=== PATIENT | female | born 1965 | race African-American/Black ===

== ENCOUNTER 2018-10-15 01:15 | Emergency (ER) | payer OTHER ==
[2018-10-15 05:32] LABS: URINE BLOOD (Dip) POC Trace-intact (NEGATIVE); URINE GLUCOSE (Dip) POC Negative (NEGATIVE); URINE KETONES (Dip) POC Negative (NEGATIVE); URINE LEUKOCYTE EST (Dip) POC Negative (NEGATIVE); URINE NITRITE (Dip) POC Negative (NEGATIVE); URINE TOTAL PROTEIN POC 1+ (NEGATIVE)
[2018-10-15] MEDS: morphine 4 MG/ML VIAL IM (05:43)
[2018-10-15] MEDS: KETOROLAC 30 MG INJ IM (05:44)
== END 2018-10-15 06:33 | disposition home or self-care (01) ==
LOC: FTE 01:15
DX: G89.29 Other chronic pain (principal); M54.30 Sciatica, unspecified side; J45.909 Unspecified asthma, uncomplicated
CPT/HCPCS: 81003; 81025; 96372; 99284-25